=== PATIENT | male | born 1985 | race Caucasian/White ===

== ENCOUNTER 2020-12-29 18:56 | Emergency (ER) | payer SELFPAY ==
[~2020-12-29] VITALS: Ht 167.6 cm; Wt 58.0 kg
[2020-12-29 19:57] VITALS: BP 121/81
[2020-12-29 21:35] LABS: CLARITY,URINE CLEAR (Clear); COLOR,URINE YELLOW (Yellow); GLUCOSE, URINE NEGATIVE (Neg); KETONES,URINE NEGATIVE (Neg); LEUKOCYTE ESTERASE ,URINE NEGATIVE (Neg); NITRITES, URINE NEGATIVE (Neg); OCCULT BLOOD,URINE NEGATIVE (Neg); PH,URINE 5.5 (4.8-8.0); PROTEIN,URINE NEGATIVE (Neg); UROBILINOGEN,URINE 0.2 E.U/dL (0.2-1.0)
[2020-12-29 21:39] LABS: UA COLLECTION TYPE CLN CATCH MIDSTREAM
== END 2020-12-30 00:53 | disposition left against medical advice (07) ==
LOC: ER 18:56
DX: F41.9 Anxiety disorder, unspecified (principal); Z53.21 Procedure and treatment not carried out due to patient leaving prior to being seen by health care provider
CPT/HCPCS: 81003

== ENCOUNTER 2021-04-01 13:04 | Emergency (ER) | payer MEDICAID ==
[~2021-04-01] VITALS: Ht 167.6 cm; Wt 52.0 kg
[2021-04-01 13:43] VITALS: BP 110/79
[2021-04-01] MEDS ORDERED: DOXY100C76 PO (13:50)
== END 2021-04-01 15:51 | disposition home or self-care (01) ==
LOC: ER 13:04
DX: S81.802A Unspecified open wound, left lower leg, initial encounter (principal); S61.202A Unspecified open wound of right middle finger without damage to nail, initial encounter; L02.416 Cutaneous abscess of left lower limb; F15.90 Other stimulant use, unspecified, uncomplicated; Z86.14 Personal history of Methicillin resistant Staphylococcus aureus infection; Z79.2 Long term (current) use of antibiotics; X58.XXXA Exposure to other specified factors, initial encounter; Y93.89 Activity, other specified; Y92.89 Other specified places as the place of occurrence of the external cause; Y99.8 Other external cause status
CPT/HCPCS: 99283

== ENCOUNTER 2021-04-11 11:15 | Emergency (ER) | payer MEDICAID ==
[~2021-04-11] VITALS: Ht 167.6 cm; Wt 60.0 kg
[2021-04-11 11:23] VITALS: BP 119/85
[2021-04-11] MEDS ORDERED: DOXY100C76 PO (11:29)
== END 2021-04-11 11:45 | disposition home or self-care (01) ==
LOC: ER 11:16
DX: L02.415 Cutaneous abscess of right lower limb (principal); Z76.0 Encounter for issue of repeat prescription; F15.10 Other stimulant abuse, uncomplicated
CPT/HCPCS: 99281

== ENCOUNTER 2021-05-26 13:23 | Emergency (ER) | payer MEDICAID ==
[~2021-05-26] VITALS: Ht 167.6 cm; Wt 59.1 kg
[~2021-05-26 13:23] MED LIST: DOXY100C76 PO
[2021-05-26] MEDS ORDERED: NALO4SPR BOTHNARES (13:52)
[2021-05-26 14:11] VITALS: BP 121/72
== END 2021-05-26 15:25 | disposition home or self-care (01) ==
LOC: ER 13:23
DX: T40.1X1A Poisoning by heroin, accidental (unintentional), initial encounter (principal); R00.0 Tachycardia, unspecified; F15.90 Other stimulant use, unspecified, uncomplicated; Z86.14 Personal history of Methicillin resistant Staphylococcus aureus infection; Z79.2 Long term (current) use of antibiotics; Z79.899 Other long term (current) drug therapy; Y92.89 Other specified places as the place of occurrence of the external cause
CPT/HCPCS: 99283

== ENCOUNTER 2021-06-24 14:04 | Emergency (ER) | payer MEDICAID ==
[~2021-06-24] VITALS: Ht 167.6 cm; Wt 60.0 kg
[~2021-06-24 14:04] MED LIST changes: +NALO4SPR BOTHNARES
[2021-06-24 14:06] VITALS: BP 129/81
[2021-06-24] MEDS ORDERED: NAPR-56 PO (14:15)
[2021-06-24] MEDS ORDERED: AMOX-422 PO (14:15)
== END 2021-06-24 14:51 | disposition home or self-care (01) ==
LOC: ER 14:05
DX: H66.011 Acute suppurative otitis media with spontaneous rupture of ear drum, right ear (principal); H92.01 Otalgia, right ear; F15.90 Other stimulant use, unspecified, uncomplicated; Z79.2 Long term (current) use of antibiotics; Z79.899 Other long term (current) drug therapy
CPT/HCPCS: 99283

== ENCOUNTER 2025-03-23 12:00 | Emergency (ER) | payer MEDICAID ==
[~2025-03-23] VITALS: Ht 167.6 cm; Wt 64.4 kg
[~2025-03-23 12:00] MED LIST changes: +DOXY-462 PO; -DOXY100C76 PO
[2025-03-23 12:21] VITALS: BP 109/65; PULSE 18; RESP 25; O2SAT 98
[2025-03-23] MEDS ORDERED: BUPR1FIL17 SL (14:23)
--- NOTE | 2025-03-23 14:25 | Physician Documentation ---
HPI ~ General Chief Complaint: Medication Refill Stated Complaint: MED REFILL Time Seen by MD: 13:48 Source: patient Mode of Arrival: POV Exam Limitations: no limitations History of Present Illness HPI Comments Patient's presents secondary to missing his appointment for Suboxone Clinic. He has been on 2 mg b.i.d. of Suboxone for the past 2-1/2 use. He got in his own and missed his zoom appointment. Next appointment is on at 1:00 p.m.. Last heroin/fentanyl use was eight months ago. Denies withdrawal symptoms. Medication Reconciliation Allergies: Coded Allergies: No Known Allergies (Unverified , 03/23/25) Scheduled Doxycycline Monohydrate (Doxycycline Monohydrate), 1 CAP PO Q12H Naloxone HCl (Narcan), 1 SPRAYS BOTHNARES ONCE Past Medical History Past Medical History: No Pertinent History, MRSA Abscess Past Surgical History: no surgical history Smoking Status: Current every day smoker Drug Use: methamphetamine Lives In: Home Review of Systems ROS Dawn's systems negative except documented in HPI. Physical Exam Physical Exam Vital Signs: Temperature: 97.8, Heart Rate: 18, Respiratory Rate: 25, BP: 109/65, Pulse Oximetry: 98, Weight: 64.400 Progress Results/Orders Results/Orders Completed Orders - ESTHER GAMEZ NP Buprenorphine/Naloxone Sl Film (Suboxone (03/23/25 15:20) Medications Received in ER Medications (Trade) Dose Ordered Sig/Dm Route PRN Reason Start Time Stop Time Status Last Admin Dose Admin (Suboxone 8MG-2MG SL film) 1 film NOW STAT SL 03/23/25 15:20 03/23/25 15:21 DC 03/23/25 15:27 1 FILM Vital Signs 03/23/25 03/23/25 12:21 15:57 Temp 97.8 97.8 Pulse 18 Resp 25 B/P (MAP) 109/65 Pulse Ox 98 Medical Decision Making Findings Patient presents with request for Suboxone refill. He states he missed his telemetry appointment to get his Suboxone refill. Last use of heroin or fentanyl was eight months ago. He denies current withdrawal symptoms. On exam, there is no evidence of acute withdrawal. We gave him a film while he was here of Suboxone. We did not have his dose and therefore a higher dose was given. Patient was monitored for adverse reaction of which there was none and discharged in stable condition. Encouraged to keep follow up with his Suboxone Clinic. Unfortunately, the [facility] system would not allow me to send in a prescription for a five day supply for him. This was despite multiple attempts. Departure Time of Disposition: 14:21 Disposition: 01 HOME / SELF CARE / HOMELESS Impression: Primary Impression: Opioid use Condition: Stable Additional Instructions: Do not miss appointments for your Suboxone. This is very important. Despite multiple attempts I was unable to send in a prescription to get you by. I will give you a tab before you leave. Please either follow up at your clinic or return if needed for repeat dosing. Referrals: NO PRIMARY CARE PROVIDER (PCP) Education Educated: Patient Educated regarding: diagnosis, treatment, need for follow up Signature Scribe Signature: No scribe Attestation: The note accurately reflects work and decisions made by me.Esther Escamilla NP 03/23/25 18:04 This note was created with the assistance of voice recognition software whereby errors in grammar, syntax, and/or spelling may have occurred despite active proofreading efforts by the author. Please do not hesitate to contact the provider for clarification or for questions regarding the content of this document. ESTHER GAMEZ NP Mar 23, 2025 14:25
[2025-03-23] MEDS ORDERED: buprenorphine/naloxone 2-0.5mg sublingual tablet SL STA (15:10)
[2025-03-23] MEDS: buprenorphine/naloxone 8MG-2MG SUBlingual film SL STA (15:27)
[2025-03-23 15:57] VITALS: TEMP 97.8
== END 2025-03-23 16:02 | disposition home or self-care (01) ==
LOC: ER 12:00
DX: F11.90 Opioid use, unspecified, uncomplicated (principal); Z76.0 Encounter for issue of repeat prescription; F17.200 Nicotine dependence, unspecified, uncomplicated; F15.90 Other stimulant use, unspecified, uncomplicated; Z79.899 Other long term (current) drug therapy
CPT/HCPCS: 99283

== ENCOUNTER 2025-03-28 14:26 | Emergency (ER) | payer MEDICAID ==
[~2025-03-28] VITALS: Ht 167.6 cm; Wt 64.5 kg
[2025-03-28 14:42] VITALS: BP 98/62; PULSE 69; RESP 16; TEMP 97.5; O2SAT 98
[2025-03-28] MEDS ORDERED: BUPR1FIL17 SL (17:16)
--- NOTE | 2025-03-28 17:16 | Physician Documentation ---
HPI ~ General Chief Complaint: Medication Request Stated Complaint: MED REQUEST Time Seen by MD: 14:52 History of Present Illness HPI Comments 40-year-old male who presents to the emergency department for break through prescription of Suboxone. Reports that he takes 2 mg twice a day in his well managed. Reports his last dose being three days ago and he has not diverted. He is scheduled to resume appointment on . He missed his last room appointment to to phone being disconnected. He is in no acute withdrawal at this time. Medication Reconciliation Allergies: Coded Allergies: No Known Allergies (Unverified , 03/28/25) Scheduled Buprenorphine Hcl/Naloxone Hcl (Suboxone 2 Mg-0.5 Mg Sl Film), 1 STRIP SL BID Doxycycline Monohydrate (Doxycycline Monohydrate), 1 CAP PO Q12H Naloxone HCl (Narcan), 1 SPRAYS BOTHNARES ONCE Past Medical History Past Medical History: No Pertinent History, MRSA Abscess Past Surgical History: no surgical history Drug Use: methamphetamine Lives In: Home Review of Systems All Other Systems at this time: Reviewed and Negative Physical Exam Physical Exam Vital Signs: Temperature: 97.5, Source: Temporal, Heart Rate: 69, Respiratory Rate: 16, BP: 98/62, Pulse Oximetry: 98, Weight: 64.550 Oxygen Flow Rate: 0 General Appearance: alert Pupils/EOM/Fundus: PERRLA Respiratory: no respiratory distress Cardiovascular: regular rate, rhythm Gastrointestinal: non-tender Back: normal inspection Extremities: normal inspection Neurologic: oriented x4 Motor / Sensory: no motor deficit, no sensory deficit Thought/Hallucinations: normal thought pattern Skin: warm/dry Progress Results/Orders Results/Orders Vital Signs 03/28/25 14:42 Temp 97.5 Pulse 69 Resp 16 B/P (MAP) 98/62 Pulse Ox 98 O2 Flow Rate 0 Medical Decision Making Additional Comment Provided patient with bridge prescription of Suboxone 2 mg b.i.d. 14. Patient understands to keep his scheduled to see him appointment for prescription refill in the return to the emergency department as needed. Discharged without acute withdrawal. Departure Disposition: 01 HOME / SELF CARE / HOMELESS Impression: Primary Impression: Encounter for monitoring Suboxone maintenance therapy Condition: Improved Discharge Instructions: Medicine Refill at the Emergency Department Additional Instructions: Please obtain your prescription for Suboxone take as directed. Please keep your scheduled follow up appointment for prescription refill. Thank you for visiting [facility]. Referrals: NO PRIMARY CARE PROVIDER (PCP) Prescriptions Buprenorphine Hcl/Naloxone Hcl (Suboxone 2 Mg-0.5 Mg Sl Film) 2 Mg-0.5 Mg Film 1 STRIP SL BID for 7 Days, #14 STRIP Prov: TEE SWANN PAC 03/28/25 Education Educated: Patient Educated regarding: diagnosis Signature Scribe Signature: . Attestation: . TEE SWANN PAC Mar 28, 2025 17:16
== END 2025-03-28 17:37 | disposition home or self-care (01) ==
LOC: ER 14:26
DX: Z51.81 Encounter for therapeutic drug level monitoring (principal); F15.90 Other stimulant use, unspecified, uncomplicated; Z76.0 Encounter for issue of repeat prescription; Z79.899 Other long term (current) drug therapy
CPT/HCPCS: 99281